=== PATIENT | male | born 1960 | race Caucasian/White ===

== ENCOUNTER 2020-06-04 07:01 | Emergency (ER) | payer MEDICARE ==
[~2020-06-04] VITALS: Ht 172.7 cm; Wt 75.0 kg
[2020-06-04 07:05] VITALS: BP 109/69; Ht 172.7 cm; Wt 75.0 kg
[2020-06-04] MEDS ORDERED: K-TAB10 MEQ PO (07:07)
[2020-06-04] MEDS ORDERED: PRINIVIL20 MG PO (07:07)
[2020-06-04] MEDS ORDERED: TYLENOL W/CODEI1 TAB PO (07:08)
[2020-06-04] MEDS ORDERED: ACETAMINOPHEN500 M1 PO (07:18)
[2020-06-04] MEDS ORDERED: IBUPROFEN800 MG PO (07:18)
[2020-06-04] MEDS ORDERED: ORAL ANALGESIC9 GM TOPICAL (07:18)
[2020-06-04] MEDS ORDERED: PENICILLIN V P500 MG PO (07:18)
== END 2020-06-04 07:43 | disposition home or self-care (01) ==
LOC: D.ER 07:01
DX: K02.9 Dental caries, unspecified (principal); K08.89 Other specified disorders of teeth and supporting structures; K05.10 Chronic gingivitis, plaque induced; I10 Essential (primary) hypertension